=== PATIENT | male | born 1965 | race African-American/Black ===

== ENCOUNTER 2018-07-14 01:49 | Inpatient (IN) | payer OTHER, MEDICAID ==
[~2018-07-14] VITALS: Ht 193 cm; Wt 94.0 kg
[2018-07-14] MEDS ORDERED: NIFEDIPINE XL 30MG TAB PO ONE (02:45)
[2018-07-14] MEDS ORDERED: FUROSEMIDE 40MG TABLET PO ONE (02:45)
[2018-07-14] MEDS: ISOSORBIDE MONONITRATE 30MG TABLET SR 24HR PO SCH ×2 (03:04→09:00)
[2018-07-14 03:15] LABS: BASOPHILS % 0.4 % (0.0-2.0); CHLORIDE 109 mEq/L (98-107); EOSINOPHILS % 1.3 % (0.0-5.0); HEMATOCRIT. 26.2 % (42.0-52.0); HEMOGLOBIN. 8.6 g/dL (14.0-18.0); LYMPHOCYTES % 22.5 % (20.0-50.0); MEAN CORPUSCULAR HEMOGLOBIN 28.3 pg (28.0-32.0); MEAN CORPUSCULAR VOLUME 86.4 fL (80.0-94.0); MEAN PLATELET VOLUME 8.2 fl (7.4-10.4); MONOCYTES % 5.2 % (2.0-8.0); NEUTROPHILS % 70.6 % (40.0-76.0); PLATELET 145 x1000/uL (130-400); RED BLOOD CELL COUNT 3.03 mill/uL (4.7-6.1); RED CELL DISTRIBUTION WIDTH 15.5 % (11.6-14.6)
[2018-07-14] MEDS ORDERED: GUAIFENESIN 200MG/10ML SUGAR FREE UDC PO PRN (09:45)
[2018-07-14] MEDS ORDERED: NITROGLYCERIN 0.4MG TABLET SL SL PRN (09:45)
[2018-07-14] MEDS ORDERED: IPRATROPIUM/ALBUTEROL 0.5-3(2.5)MG/3ML NEB INH PRN (09:45)
[2018-07-14] MEDS ORDERED: MAGNESIUM/ALUMINUM HYDROXIDE/SIMETHICONE 30ML UDC PO PRN (09:45)
[2018-07-14] MEDS ORDERED: ONDANSETRON HCL 4MG/2ML INJ IV PRN (09:45)
[2018-07-14] MEDS ORDERED: ZOLPIDEM TARTRATE 5MG TABLET PO PRN (09:45)
[2018-07-14] MEDS ORDERED: DOCUSATE SODIUM 100MG CAPSULE PO PRN (09:45)
[2018-07-14] MEDS ORDERED: ACETAMINOPHEN 325MG TABLET PO PRN (09:45)
[2018-07-14] MEDS: CLONIDINE 0.1MG TABLET PO PRN ×2 (11:30→19:07)
[2018-07-14] MEDS ORDERED: METOLAZONE 10MG TABLET PO NR (12:00)
[2018-07-14] MEDS ORDERED: HYDRALAZINE HCL 50MG TABLET PO SCH (12:00)
[2018-07-14 14:48] LABS: CREATINE KINASE MB FRACTION 2.6 ng/mL (0.5-3.6)
[2018-07-14] MEDS: FAMOTIDINE 20MG TABLET PO SCH (21:20)
[2018-07-14] MEDS: METOPROLOL TARTRATE 25MG TABLET PO SCH (21:20)
[2018-07-14] MEDS: FUROSEMIDE 40MG/4ML VIAL IVP SCH (21:20)
[2018-07-14 22:40] VITALS: BP 188/118
[2018-07-14 23:44] LABS: CREATINE KINASE MB FRACTION 2.4 ng/mL (0.5-3.6)
[2018-07-14] MEDS: SPIRONOLACTONE 25MG TABLET PO SCH (23:53)
[2018-07-14] MEDS: HYDRALAZINE HCL 50MG TABLET PO SCH (23:55)
[2018-07-15] MEDS ORDERED: NITR0.4T49 SL (00:04)
[2018-07-15] MEDS ORDERED: NIFE30TA83 PO (00:04)
[2018-07-15] MEDS ORDERED: FURO40TA5 PO (00:04)
[2018-07-15] MEDS ORDERED: CARV12.545 PO (00:04)
[2018-07-15] MEDS ORDERED: ISOS60TA4 PO (00:04)
[2018-07-15] MEDS ORDERED: DOCU-150 PO (00:04)
[2018-07-15] MEDS ORDERED: LORA0.5T2 PO (00:04)
[2018-07-15] MEDS ORDERED: ASPI-1158 PO (00:04)
[2018-07-15 01:18] LABS: CLARITY URINE CLEAR (CLEAR); COLOR URINE YELLOW (YELLOW); KETONES URINE NEGATIVE (NEGATIVE); LEUKOCYTE ESTERASE URINE NEGATIVE (NEGATIVE); NITRITE URINE NEGATIVE (NEGATIVE); OCCULT BLOOD URINE TRACE (NEGATIVE); PROTEIN URINE 1+ (NEGATIVE); SPECIFIC GRAVITY URINE 1.007 (1.005-1.030); UROBILINOGEN URINE 0.2 E.U./dL (0.2-1.0)
[2018-07-15 01:41] LABS: *AMPHETAMINES SCREEN URINE NEGATIVE (NEGATIVE); *BARBITURATES SCREEN URINE NEGATIVE (NEGATIVE); *BENZODIAZEPINES SCREEN URINE NEGATIVE (NEGATIVE); *COCAINE SCREEN URINE NEGATIVE (NEGATIVE); METHADONE URINE SCREEN NEGATIVE (NEGATIVE)
[2018-07-15 01:42] LABS: CANNABINOID URINE SCREEN NEGATIVE (NEGATIVE); OPIATES URINE SCREEN NEGATIVE (NEGATIVE); PHENCYCLIDINE URINE SCREEN NEGATIVE (NEGATIVE)
[2018-07-15 04:00] VITALS: BP 189/119
[2018-07-15] MEDS: HYDRALAZINE HCL 50MG TABLET PO SCH ×3 (05:12→22:12)
[2018-07-15 07:24] LABS: BASOPHILS % 0.8 % (0.0-2.0); EOSINOPHILS % 2.7 % (0.0-5.0); HEMATOCRIT. 29.4 % (42.0-52.0); HEMOGLOBIN. 9.7 g/dL (14.0-18.0); LYMPHOCYTES % 32.1 % (20.0-50.0); MEAN CORPUSCULAR HEMOGLOBIN 27.9 pg (28.0-32.0); MEAN CORPUSCULAR VOLUME 85.1 fL (80.0-94.0); MONOCYTES % 5.7 % (2.0-8.0); NEUTROPHILS % 58.7 % (40.0-76.0); PLATELET 170 x1000/uL (130-400); RED BLOOD CELL COUNT 3.46 mill/uL (4.7-6.1); RED CELL DISTRIBUTION WIDTH 15.4 % (11.6-14.6)
[2018-07-15 07:34] LABS: PHOSPHORUS 5.5 mg/dL (2.5-4.9)
[2018-07-15 08:19] VITALS: BP 182/120
[2018-07-15] MEDS ORDERED: ENOXAPARIN 40MG/0.4ML SYR SUBCUT SCH (09:00)
[2018-07-15] MEDS: FUROSEMIDE 40MG/4ML VIAL IVP SCH ×2 (09:03→20:40)
[2018-07-15] MEDS: FOLIC ACID/VITAMIN B COMP W-C TABLET PO SCH (09:03)
[2018-07-15] MEDS: SPIRONOLACTONE 25MG TABLET PO SCH ×2 (09:03→20:40)
[2018-07-15] MEDS: METOPROLOL TARTRATE 25MG TABLET PO SCH ×3 (09:03→20:45)
[2018-07-15] MEDS: ISOSORBIDE MONONITRATE 30MG TABLET SR 24HR PO SCH (09:06)
[2018-07-15 11:55] VITALS: BP 151/103
[2018-07-15] MEDS: MINOXIDIL 2.5MG TABLET PO SCH ×2 (12:09→20:40)
[2018-07-15 16:47] VITALS: BP 158/99
[2018-07-15] MEDS: FERROUS SULFATE 325MG TABLET PO SCH (17:51)
[2018-07-15] MEDS: CLONIDINE 0.1MG TABLET PO PRN (17:51)
[2018-07-15 19:47] VITALS: BP 144/103
[2018-07-15] MEDS: FAMOTIDINE 20MG TABLET PO SCH (20:40)
[2018-07-15] MEDS ORDERED: EPOETIN ALFA 10000UNITS/ML VIAL SUBCUT NR (21:00)
[2018-07-16] VITALS: BP 161/117
[2018-07-16 03:41] VITALS: BP 145/90
[2018-07-16] MEDS: HYDRALAZINE HCL 50MG TABLET PO SCH (05:15)
[2018-07-16 08:07] VITALS: BP 164/106
[2018-07-16] MEDS: FERROUS SULFATE 325MG TABLET PO SCH ×2 (08:34→12:50)
[2018-07-16] MEDS: FOLIC ACID/VITAMIN B COMP W-C TABLET PO SCH (08:34)
[2018-07-16] MEDS: ISOSORBIDE MONONITRATE 30MG TABLET SR 24HR PO SCH (08:34)
[2018-07-16] MEDS: MINOXIDIL 2.5MG TABLET PO SCH (08:35)
[2018-07-16] MEDS: SPIRONOLACTONE 25MG TABLET PO SCH (08:35)
[2018-07-16] MEDS: METOPROLOL TARTRATE 25MG TABLET PO SCH (08:35)
[2018-07-16] MEDS: FUROSEMIDE 40MG/4ML VIAL IVP SCH (08:35)
[2018-07-16] MEDS ORDERED: ENOXAPARIN 30MG/0.3ML SYR SUBCUT SCH (09:00)
[2018-07-16 10:48] LABS: HEMATOCRIT. 32.5 % (42.0-52.0); HEMOGLOBIN. 10.6 g/dL (14.0-18.0); LYMPHOCYTES % 34.1 % (20.0-50.0); MEAN CORPUSCULAR HEMOGLOBIN 27.6 pg (28.0-32.0); MEAN CORPUSCULAR VOLUME 84.7 fL (80.0-94.0); MEAN PLATELET VOLUME 8.8 fl (7.4-10.4); MONOCYTES % 5.9 % (2.0-8.0); PLATELET 217 x1000/uL (130-400); RED BLOOD CELL COUNT 3.84 mill/uL (4.7-6.1); RED CELL DISTRIBUTION WIDTH 15.4 % (11.6-14.6)
[2018-07-16 11:17] LABS: PHOSPHORUS 4.8 mg/dL (2.5-4.9)
[2018-07-16 11:38] VITALS: BP 133/94
[2018-07-16 12:21] VITALS: BP 134/94
[2018-07-16] MEDS ORDERED: MINOXIDIL 2.5MG TABLET PO SCH (21:00)
[2018-07-18 13:59] LABS: A/G RATIO 1.2 (0.7-1.7); ALBUMIN 3.7 g/dL (2.9-4.4); ALPHA-1-GLOBULIN 0.3 g/dL (0.0-0.4); ALPHA-2-GLOBULIN 0.6 g/dL (0.4-1.0); BETA GLOBULIN 1.2 g/dL (0.7-1.3); GAMMA GLOBULINS 1.2 g/dL (0.4-1.8); GLOBULIN TOTAL 3.2 g/dL (2.2-3.9); M-SPIKE Not Observed g/dL (Not Observed); TOTAL PROTEIN SERUM 6.9 g/dL (6.0-8.5)
[2018-07-19 07:18] LABS: ALBUMIN URINE 55.9 % (.); BETA GLOBULIN URINE 17.6 % (.); GAMMA GLOBULIN URINE 12.5 % (.); TOTAL PROTEIN RANDOM URINE 46.4 mg/dL (Not Estab.)
== END 2018-07-16 13:18 | disposition home or self-care (01) | DRG 199 ==
LOC: ER 02:23 → 6WST 03:40 → ENRESERV 21:08
PROVIDERS: ADMIT Internal Medicine; ATTEND Internal Medicine
DX: I16.0 Hypertensive urgency (principal); J96.91 Respiratory failure, unspecified with hypoxia; N17.0 Acute kidney failure with tubular necrosis; I50.33 Acute on chronic diastolic (congestive) heart failure; E44.0 Moderate protein-calorie malnutrition; I13.2 Hypertensive heart and chronic kidney disease with heart failure and with stage 5 chronic kidney disease, or end stage renal disease; N18.5 Chronic kidney disease, stage 5; J45.909 Unspecified asthma, uncomplicated; E87.6 Hypokalemia; E83.51 Hypocalcemia; D63.8 Anemia in other chronic diseases classified elsewhere; N28.1 Cyst of kidney, acquired; Z82.49 Family history of ischemic heart disease and other diseases of the circulatory system; Z68.25 Body mass index [BMI] 25.0-25.9, adult
CPT/HCPCS: 36415; 71045; 76770; 80048; 80061; 80305; 82270; 82550; 82553; 82570; 82728; 83036; 83540; 83550; 83735; 83880; 84100; 84155; 84156; 84165; 84166; 84484; 93005; 93970; 96374; 96375; 99285; J0885; J1650; J1940

== ENCOUNTER 2018-08-15 13:55 | Inpatient (IN) | payer OTHER, MEDICAID ==
[~2018-08-15] VITALS: Ht 193 cm; Wt 116.3 kg
[2018-08-15] MEDS ORDERED: FURO40TA5 PO (14:08)
[2018-08-15] MEDS ORDERED: ISOS30TA6 PO (14:08)
[2018-08-15] MEDS ORDERED: NITR0.4T49 SL (14:08)
[2018-08-15] MEDS ORDERED: ASPI-1158 PO (14:08)
[2018-08-15] MEDS ORDERED: CARV12.545 PO (14:08)
[2018-08-15] MEDS ORDERED: FERR220S12 PO (14:08)
[2018-08-15] MEDS ORDERED: METO-539 PO (14:08)
[2018-08-15] MEDS ORDERED: MINO2.5T2 PO (14:08)
[2018-08-15] MEDS ORDERED: HYDR-4135 PO (14:08)
[2018-08-15] MEDS ORDERED: ONDANSETRON HCL 4MG/2ML INJ IV STA (15:34)
[2018-08-15] MEDS ORDERED: MORPHINE SULFATE 4 MG/ML CPJ (NOT FOR IM USE) IV STA (15:34)
[2018-08-15] MEDS ORDERED: FUROSEMIDE 40MG/4ML VIAL IV ONE (15:45)
[2018-08-15 16:20] LABS: BASOPHILS % 0.8 % (0.0-2.0); EOSINOPHILS % 2.1 % (0.0-5.0); HEMATOCRIT. 26.6 % (42.0-52.0); LYMPHOCYTES % 22.8 % (20.0-50.0); MEAN CORPUSCULAR HEMOGLOBIN 28.4 pg (28.0-32.0); MEAN CORPUSCULAR VOLUME 84.2 fL (80.0-94.0); MEAN PLATELET VOLUME 8.3 fl (7.4-10.4); MONOCYTES % 9.1 % (2.0-8.0); NEUTROPHILS % 65.2 % (40.0-76.0); PLATELET 230 x1000/uL (130-400); RED BLOOD CELL COUNT 3.16 mill/uL (4.7-6.1); RED CELL DISTRIBUTION WIDTH 16.3 % (11.6-14.6)
[2018-08-15 16:24] LABS: CHLORIDE 110 mEq/L (98-107)
[2018-08-15 16:30] LABS: INR 1.1; PARTIAL THROMBOPLASTIN TIME 30.8 sec (23.4-31.0); PROTHROMBIN TIME 11.5 sec (9.6-11.0)
[2018-08-15 16:32] LABS: ETHANOL BLOOD < 10 mg/dL
[2018-08-15 17:45] LABS: CLARITY URINE CLEAR (CLEAR); COLOR URINE YELLOW (YELLOW); KETONES URINE NEGATIVE (NEGATIVE); LEUKOCYTE ESTERASE URINE NEGATIVE (NEGATIVE); NITRITE URINE NEGATIVE (NEGATIVE); OCCULT BLOOD URINE NEGATIVE (NEGATIVE); PROTEIN URINE 1+ (NEGATIVE); SPECIFIC GRAVITY URINE 1.007 (1.005-1.030); UROBILINOGEN URINE 0.2 E.U./dL (0.2-1.0)
[2018-08-15 17:59] LABS: *AMPHETAMINES SCREEN URINE NEGATIVE (NEGATIVE); *BARBITURATES SCREEN URINE NEGATIVE (NEGATIVE); *BENZODIAZEPINES SCREEN URINE NEGATIVE (NEGATIVE); *COCAINE SCREEN URINE NEGATIVE (NEGATIVE)
[2018-08-15 18:00] LABS: CANNABINOID URINE SCREEN NEGATIVE (NEGATIVE); METHADONE URINE SCREEN NEGATIVE (NEGATIVE); OPIATES URINE SCREEN NEGATIVE (NEGATIVE)
[2018-08-15 18:40] LABS: PHENCYCLIDINE URINE SCREEN NEGATIVE (NEGATIVE)
[2018-08-15] MEDS ORDERED: ASPIRIN 81MG TABLET PO ONE (18:45)
[2018-08-15] MEDS ORDERED: CLONIDINE 0.2MG TABLET PO ONE (18:45)
[2018-08-15] MEDS ORDERED: ONDANSETRON HCL 4MG/2ML INJ IV PRN (21:15)
[2018-08-15] MEDS ORDERED: IPRATROPIUM/ALBUTEROL 0.5-3(2.5)MG/3ML NEB INH PRN (21:15)
[2018-08-15] MEDS ORDERED: MAGNESIUM/ALUMINUM HYDROXIDE/SIMETHICONE 30ML UDC PO PRN (21:15)
[2018-08-15] MEDS ORDERED: HYDROCODONE/ACETAMINOPHEN 10/325MG TABLET PO PRN (21:15)
[2018-08-15] MEDS ORDERED: HYDROMORPHONE HCL/PF 2MG/ML CPJ IV PRN (21:15)
[2018-08-15] MEDS ORDERED: ACETAMINOPHEN 325MG TABLET PO PRN (21:15)
[2018-08-15] MEDS ORDERED: GUAIFENESIN 200MG/10ML SUGAR FREE UDC PO PRN (21:15)
[2018-08-15] MEDS ORDERED: DOCUSATE SODIUM 100MG CAPSULE PO PRN (21:15)
[2018-08-15] MEDS ORDERED: DIPHENHYDRAMINE 50MG/ML VIAL IV PRN (21:15)
[2018-08-15] MEDS ORDERED: LORAZEPAM 2MG/ML CPJ IV PRN (21:15)
[2018-08-16 00:07] LABS: CREATINE KINASE MB FRACTION 5.5 ng/mL (0.5-3.6)
[2018-08-16 00:38] VITALS: BP 163/103
[2018-08-16] MEDS: HYDRALAZINE 20MG/ML VIAL IV PRN ×2 (02:10→15:50)
[2018-08-16 04:00] VITALS: BP 144/78
[2018-08-16] MEDS: SODIUM CHLORIDE 0.9% INJ 3ML FLUSH IVF SCH ×3 (05:14→21:30)
[2018-08-16 07:08] LABS: EOSINOPHILS % 2.8 % (0.0-5.0); HEMATOCRIT. 27.5 % (42.0-52.0); HEMOGLOBIN. 8.9 g/dL (14.0-18.0); LYMPHOCYTES % 25.5 % (20.0-50.0); MEAN CORPUSCULAR HEMOGLOBIN 27.6 pg (28.0-32.0); MEAN CORPUSCULAR VOLUME 84.7 fL (80.0-94.0); MEAN PLATELET VOLUME 8.6 fl (7.4-10.4); MONOCYTES % 9.7 % (2.0-8.0); PLATELET 226 x1000/uL (130-400); RED BLOOD CELL COUNT 3.24 mill/uL (4.7-6.1); RED CELL DISTRIBUTION WIDTH 16.2 % (11.6-14.6)
[2018-08-16 07:30] LABS: CHLORIDE 113 mEq/L (98-107)
[2018-08-16 08:00] LABS: CREATINE KINASE 427 IU/L (39-308)
[2018-08-16] MEDS ORDERED: MAGNESIUM 2 G PREMIX 50 ML IV SCH (08:00)
[2018-08-16 08:03] LABS: CREATINE KINASE MB FRACTION 4.4 ng/mL (0.5-3.6)
[2018-08-16] MEDS: ENOXAPARIN 40MG/0.4ML SYR SUBCUT SCH (09:00)
[2018-08-16] MEDS: ASPIRIN 81MG EC TABLET PO SCH (09:53)
[2018-08-16] MEDS: CARVEDILOL 3.125 MG TABLET PO SCH ×2 (09:53→21:26)
[2018-08-16 11:38] VITALS: BP 169/109
[2018-08-16 16:00] VITALS: BP 182/113
[2018-08-16 16:22] LABS: T4 FREE 1.08 ng/dL (0.76-1.46)
[2018-08-16 16:24] LABS: CREATINE KINASE MB FRACTION 3.9 ng/mL (0.5-3.6)
[2018-08-16] MEDS: CLONIDINE 0.1MG TABLET PO PRN (20:58)
[2018-08-17 00:51] LABS: CREATINE KINASE MB FRACTION 3.5 ng/mL (0.5-3.6)
[2018-08-17] MEDS: CLONIDINE 0.1MG TABLET PO PRN ×2 (04:58→12:55)
[2018-08-17] MEDS: SODIUM CHLORIDE 0.9% INJ 3ML FLUSH IVF SCH ×2 (05:01→13:33)
[2018-08-17 08:00] VITALS: BP 161/102
[2018-08-17] MEDS: CARVEDILOL 3.125 MG TABLET PO SCH (08:51)
[2018-08-17] MEDS: ASPIRIN 81MG EC TABLET PO SCH (08:51)
[2018-08-17] MEDS: ENOXAPARIN 40MG/0.4ML SYR SUBCUT SCH (08:54)
[2018-08-17 10:51] LABS: CREATINE KINASE MB FRACTION 2.5 ng/mL (0.5-3.6)
[2018-08-17 12:00] VITALS: BP 188/108
[2018-08-17 13:20] VITALS: BP 150/90
[2018-08-17] MEDS: HYDRALAZINE 20MG/ML VIAL IV PRN (13:42)
[2018-08-18 09:06] LABS: HIV SCREEN 4G Non Reactive (Non Reactive)
[2018-08-18 17:08] LABS: ANTI-NUCLEAR ANTIBODIES DIRECT Negative (Negative)
[2018-08-19 08:10] LABS: COMPLEMENT C3 122 mg/dL (82-167)
== END 2018-08-17 15:27 | disposition home or self-care (01) | DRG 194 ==
LOC: ER 13:55 → 6WST 18:27 → EDBEDREQ 18:29 → EDBEDREQTM 18:29 → ENRESERV 21:07
PROVIDERS: ADMIT Internal Medicine; ATTEND Internal Medicine
DX: I13.0 Hypertensive heart and chronic kidney disease with heart failure and stage 1 through stage 4 chronic kidney disease, or unspecified chronic kidney disease (principal); N17.9 Acute kidney failure, unspecified; E87.8 Other disorders of electrolyte and fluid balance, not elsewhere classified; E83.51 Hypocalcemia; I16.1 Hypertensive emergency; D64.9 Anemia, unspecified; F17.210 Nicotine dependence, cigarettes, uncomplicated; N18.9 Chronic kidney disease, unspecified; Z91.15 Patient's noncompliance with renal dialysis; I50.33 Acute on chronic diastolic (congestive) heart failure
CPT/HCPCS: 36415; 71045; 76770; 80061; 80305; 80320; 82550; 82553; 83036; 83735; 83880; 84439; 84443; 84484; 85379; 86038; 86160; 87389; 93005; 93306; 93970; 96374; 96375; 99285; J0360; J1650; J1940; J2060; J2270; J2405; J3475; G0480

== ENCOUNTER 2018-11-18 02:35 | Inpatient (IN) | payer SELFPAY ==
[~2018-11-18] VITALS: Ht 193 cm; Wt 94.8 kg
[~2018-11-18 02:35] MED LIST: ASPI-1158 PO; CARV12.545 PO; FERR220S12 PO; FURO40TA5 PO; HYDR-4135 PO; ISOS30TA6 PO; METO-539 PO; MINO2.5T2 PO; NITR0.4T49 SL
[2018-11-18] MEDS ORDERED: ASPIRIN 81MG TABLET PO ONE (03:15)
[2018-11-18] MEDS ORDERED: FUROSEMIDE 40MG/4ML VIAL IV ONE (03:15)
[2018-11-18 03:36] LABS: BASOPHILS % 0.7 % (0.0-2.0); CHLORIDE 106 mEq/L (98-107); EOSINOPHILS % 2.4 % (0.0-5.0); HEMATOCRIT. 27.1 % (42.0-52.0); LYMPHOCYTES % 22.4 % (20.0-50.0); MEAN CORPUSCULAR HEMOGLOBIN 28.4 pg (28.0-32.0); MEAN CORPUSCULAR VOLUME 85.3 fL (80.0-94.0); MEAN PLATELET VOLUME 8.4 fl (7.4-10.4); MONOCYTES % 4.4 % (2.0-8.0); NEUTROPHILS % 70.1 % (40.0-76.0); PLATELET 149 x1000/uL (130-400); RED BLOOD CELL COUNT 3.18 mill/uL (4.7-6.1); RED CELL DISTRIBUTION WIDTH 17.5 % (11.6-14.6)
[2018-11-18] MEDS ORDERED: LABETALOL HCL 20MG/4ML CARPUJECT IV ONE (05:00)
[2018-11-18] MEDS ORDERED: LABETALOL 5MG/ML SYR 20 MG/4 ML SYRINGE IV NR ×2 (05:00→05:45)
[2018-11-18] MEDS ORDERED: HYDRALAZINE 20MG/ML VIAL IV ONE (08:00)
[2018-11-18] MEDS ORDERED: LORAZEPAM 0.5MG TABLET PO PRN (08:15)
[2018-11-18] MEDS ORDERED: NITROGLYCERIN 0.4MG TABLET SL SL PRN (08:15)
[2018-11-18] MEDS ORDERED: MAGNESIUM/ALUMINUM HYDROXIDE/SIMETHICONE 30ML UDC PO PRN (08:15)
[2018-11-18] MEDS ORDERED: IPRATROPIUM/ALBUTEROL 0.5-3(2.5)MG/3ML NEB INH PRN (08:15)
[2018-11-18] MEDS ORDERED: ONDANSETRON HCL 4MG/2ML INJ IV PRN (08:15)
[2018-11-18] MEDS ORDERED: DOCUSATE SODIUM 100MG CAPSULE PO PRN (08:15)
[2018-11-18] MEDS: ENOXAPARIN 40MG/0.4ML SYR SUBCUT SCH (08:15)
[2018-11-18] MEDS ORDERED: GUAIFENESIN 200MG/10ML SUGAR FREE UDC PO PRN (08:15)
[2018-11-18] MEDS ORDERED: ACETAMINOPHEN 325MG TABLET PO PRN (08:15)
[2018-11-18] MEDS: METOPROLOL TARTRATE 25MG TABLET PO SCH ×2 (08:49→21:05)
[2018-11-18] MEDS: CLONIDINE 0.1MG TABLET PO PRN ×2 (08:50→19:30)
[2018-11-18] MEDS: AMLODIPINE 10MG TABLET PO SCH (08:50)
[2018-11-18] MEDS: HYDRALAZINE HCL 50MG TABLET PO SCH ×3 (09:00→21:04)
[2018-11-18] MEDS ORDERED: FAMOTIDINE 20MG TABLET PO SCH (09:00)
[2018-11-18] MEDS: MINOXIDIL 2.5MG TABLET PO SCH ×2 (10:10→21:04)
[2018-11-18] MEDS: FAMOTIDINE 20MG TABLET PO SCH (10:45)
[2018-11-18 12:13] VITALS: BP 165/101
[2018-11-18] MEDS: FUROSEMIDE 40MG TABLET PO SCH (18:16)
[2018-11-18 18:57] LABS: CREATINE KINASE MB FRACTION 4.4 ng/mL (0.5-3.6)
[2018-11-18 20:00] VITALS: BP 169/101
[2018-11-18] MEDS ORDERED: ZOLPIDEM TARTRATE 5MG TABLET PO PRN (21:00)
[2018-11-19] VITALS: BP 130/75
[2018-11-19 00:45] LABS: CREATINE KINASE MB FRACTION 4.1 ng/mL (0.5-3.6)
[2018-11-19 04:00] VITALS: BP 135/75
[2018-11-19] MEDS: FUROSEMIDE 40MG TABLET PO SCH ×2 (05:00→17:17)
[2018-11-19] MEDS: HYDRALAZINE HCL 50MG TABLET PO SCH ×3 (05:00→22:01)
[2018-11-19 08:00] VITALS: BP 144/75
[2018-11-19] MEDS: METOPROLOL TARTRATE 25MG TABLET PO SCH ×2 (09:59→20:55)
[2018-11-19] MEDS: AMLODIPINE 10MG TABLET PO SCH (09:59)
[2018-11-19] MEDS: MINOXIDIL 2.5MG TABLET PO SCH ×2 (09:59→20:55)
[2018-11-19] MEDS: FAMOTIDINE 20MG TABLET PO SCH (09:59)
[2018-11-19] MEDS: ENOXAPARIN 40MG/0.4ML SYR SUBCUT SCH (10:04)
[2018-11-19 12:00] VITALS: BP 145/93
[2018-11-19 16:00] VITALS: BP 166/104
[2018-11-19 20:00] VITALS: BP 132/72
[2018-11-20] VITALS: BP 128/81
[2018-11-20 04:00] VITALS: BP 126/70
[2018-11-20] MEDS: HYDRALAZINE HCL 50MG TABLET PO SCH (05:44)
[2018-11-20] MEDS: FUROSEMIDE 40MG TABLET PO SCH (05:44)
[2018-11-20 08:00] VITALS: BP 142/91
[2018-11-20] MEDS: ENOXAPARIN 40MG/0.4ML SYR SUBCUT SCH (08:40)
[2018-11-20] MEDS: MINOXIDIL 2.5MG TABLET PO SCH (08:41)
[2018-11-20] MEDS: METOPROLOL TARTRATE 25MG TABLET PO SCH (08:41)
[2018-11-20] MEDS: AMLODIPINE 10MG TABLET PO SCH (08:42)
[2018-11-20 12:00] VITALS: BP 133/83
[2018-11-20 12:30] VITALS: BP 133/83
== END 2018-11-20 13:44 | disposition home or self-care (01) | DRG 194 ==
LOC: ER 02:35 → 8WST 05:44 → ENRESERV 07:39
PROVIDERS: ADMIT Internal Medicine; ATTEND Internal Medicine
DX: I13.0 Hypertensive heart and chronic kidney disease with heart failure and stage 1 through stage 4 chronic kidney disease, or unspecified chronic kidney disease (principal); J96.00 Acute respiratory failure, unspecified whether with hypoxia or hypercapnia; N18.9 Chronic kidney disease, unspecified; N17.9 Acute kidney failure, unspecified; I50.33 Acute on chronic diastolic (congestive) heart failure; D63.8 Anemia in other chronic diseases classified elsewhere; F12.90 Cannabis use, unspecified, uncomplicated; F17.210 Nicotine dependence, cigarettes, uncomplicated; Z91.14 Patient's other noncompliance with medication regimen; Z91.11 Patient's noncompliance with dietary regimen; Z91.15 Patient's noncompliance with renal dialysis
CPT/HCPCS: 36415; 71045; 76770; 80061; 82550; 82553; 83036; 83880; 84484; 93005; 93970; 96374; 96375; 96376; 99291; J0360; J1650; J1940; J3490